=== PATIENT | female | born 1940 | race Caucasian/White ===

== ENCOUNTER 2023-03-26 16:10 | Emergency (ER) | payer MEDICARE, MEDICAID ==
[~2023-03-26] VITALS: Ht 177.8 cm; Wt 109.0 kg
[2023-03-26 16:18] VITALS: O2SAT 98
[2023-03-26] MEDS ORDERED: IBUPROFEN 600MG TABLET PO ONE (16:30)
[2023-03-26] MEDS ORDERED: ACETAMINOPHEN 325MG TABLET PO ONE (16:45)
[2023-03-26] MEDS ORDERED: ACETAMINOPHEN 325MG TABLET PO NR (17:00)
[2023-03-26] MEDS ORDERED: METHOCARBAMOL 500MG TABLET PO ONE (17:15)
[2023-03-26] MEDS ORDERED: CYCL10TA21 MT (18:58)
[2023-03-26] MEDS ORDERED: IBUP-2029 MT (18:59)
[2023-03-26 19:15] VITALS: BP 128/87; PULSE 70; RESP 19; TEMP 97.8
== END 2023-03-26 19:17 | disposition home or self-care (01) ==
LOC: ER 16:10
DX: S39.012A Strain of muscle, fascia and tendon of lower back, initial encounter (principal); M48.00 Spinal stenosis, site unspecified; Z88.5 Allergy status to narcotic agent; Z88.6 Allergy status to analgesic agent; W18.30XA Fall on same level, unspecified, initial encounter; Y93.89 Activity, other specified; Y92.89 Other specified places as the place of occurrence of the external cause; Y99.8 Other external cause status
CPT/HCPCS: 72128; 72131; 99284